=== PATIENT | female | born 1950 | race Caucasian/White ===

== ENCOUNTER 2021-11-05 12:50 | Outpatient (CLI) | payer MEDICARE, OTHER | END 2021-11-05 12:51 | disposition home or self-care (01) | LOC: BICMAMMO 12:50 | PROVIDERS: ATTEND Internal Medicine | DX: Z12.31 Encounter for screening mammogram for malignant neoplasm of breast (principal); Z98.890 Other specified postprocedural states | CPT/HCPCS: 77063; 77067 ==

== ENCOUNTER 2023-01-11 09:35 | Outpatient (CLI) | payer MEDICARE, OTHER | END 2023-01-11 09:36 | disposition home or self-care (01) | LOC: RAD 09:35 | PROVIDERS: ATTEND Internal Medicine Critical Care Medicine | DX: R06.00 Dyspnea, unspecified (principal); J44.9 Chronic obstructive pulmonary disease, unspecified; S22.001D Stable burst fracture of unspecified thoracic vertebra, subsequent encounter for fracture with routine healing; I51.7 Cardiomegaly | CPT/HCPCS: 71046 ==

== ENCOUNTER 2023-09-28 14:46 | Outpatient (CLI) | payer MEDICARE, OTHER | END 2023-09-28 14:47 | disposition home or self-care (01) | LOC: BICCT 14:46 | PROVIDERS: ATTEND Internal Medicine Critical Care Medicine | DX: Z12.2 Encounter for screening for malignant neoplasm of respiratory organs (principal); J44.9 Chronic obstructive pulmonary disease, unspecified; Z87.891 Personal history of nicotine dependence | CPT/HCPCS: 71271 ==

== ENCOUNTER 2025-03-04 09:12 | Outpatient (CLI) | payer MEDICARE, OTHER | END 2025-03-04 09:13 | disposition home or self-care (01) | LOC: BICCT 09:12 | PROVIDERS: ATTEND Internal Medicine Critical Care Medicine | DX: Z12.2 Encounter for screening for malignant neoplasm of respiratory organs (principal); J44.9 Chronic obstructive pulmonary disease, unspecified; Z87.891 Personal history of nicotine dependence | CPT/HCPCS: 71271 ==